=== PATIENT | male | born 1975 | race Caucasian/White ===

== ENCOUNTER 2017-08-09 05:45 | Day surgery (SDC) | payer BC ==
--- NOTE | 2017-08-03 15:11 | HP ---
HISTORY OF PRESENT ILLNESS: Mr. Buchanan is a 42-year-old male who we usually saw in 02/2017, who pres ented with right hip pain and low back pain. He had an MRI, which resulted and discussed and then he followed up with our office, presenting again with back and right hip pain as well as right groin in guinal and pudendal pain in 03/2017. He has some post-void urinary leakage at that time. In additio n, he had neck pain and bilateral hand numbness in the thumb, index and middle fingers, which is wors e at night and response to shaking of his wrist. EMG resulted with no radiculopathy, but bilateral c arpal tunnel syndrome and ulnar nerve was normal. He continues to have the hand pain at night and it is responding when he shakes his hands out. His s ymptoms are worse in the right greater than the left and are worse with physical activity. MRI of th e neck showed kyphosis at C3-C4, C4-C5, C5-C6. Disk disease at each, but worse at C4-C5 where there is moderate stenosis and foraminal disease. PAST MEDICAL HISTORY: Hypertension, varicocele in 2017. ALLERGIES: LEVAQUIN. REVIEW OF SYSTEMS: Ten-point review of systems completed and is otherwise negative unless stated in the above HPI. PAST SURGICAL HISTORY: Left knee cap chipped, spermatocele removed in 2013, right labrum shoulder te ar in 2015. HOSPITALIZATIONS: Hospitalizations for surgeries only. FAMILY HISTORY: Noncontributory. The patient is adopted. SOCIAL HISTORY: The patient is a nonsmoker. He is single. He is a hunting branch operations manager. MEDICATIONS: He is takin. Nasacort Allergy 24HR. 2. Prilosec. PHYSICAL EXAMINATION: HEENT: Normocephalic, atraumatic. Hearing is intact. Moist mucous membranes. NECK: Trachea is midline. EYES: Pupils are equal and reactive to light. Extraocular muscles are intact. Sclerae is white, no nicteric. PSYCHIATRIC: Normal mood and affect. CARDIOVASCULAR: No cyanosis or clubbing noted. Intact pedal pulses bilaterally. MUSCULOSKELETAL: Lower extremity, 5/5 strength in bilateral iliopsoas, quadriceps, hamstrings, right tibialis anterior and extensor hallucis longus. No sensory deficits bilaterally. Nontender to palp ation midline lumbar spine. RESPIRATORY: The patient has bilateral symmetric chest rise. Appears to have no shortness of breath . NEUROLOGIC: Cranial nerves II through XII are grossly intact. Speech is fluent, answers my question s appropriately. He has normal gait and station. He has numbness and no dermatomal pattern in the r ight and left hand. The pain is worse in the right hand. ASSESSMENT: 1. Right hip pain. 2. Carpal tunnel syndrome, bilateral upper wrist. 3. Kyphosis of the cervical region. PLAN: Dr. Alvarado talked to him about conservative therapy including weight loss, injections, phys ical therapy, and traction. We discussed a right carpal tunnel release. Informed consent was given. We discussed the risks, benefits, and possible complications of surgery. The patient is willing to proceed with the right carpal tunnel release.
[2017-08-06 11:29] VITALS: BMI 31.4
[2017-08-09] MEDS ORDERED: Midazolam HCl 2 mg/2 ml Vial ONE (06:08)
[2017-08-09] MEDS ORDERED: Fentanyl 100 MCG/2 ML VIAL ONE (06:08)
[2017-08-09] MEDS ORDERED: CEFAZOLIN/Water 2 GM/20 ML SYRINGE ONE (06:28)
[2017-08-09 06:31] LABS: #Basophils 0.1 thou/uL (0.0-0.2); #Eosinphils 0.2 thou/uL (0.0-0.7); #Lymphocytes 1.8 thou/uL (1.20-3.40); #Monocytes 0.6 thou/uL (0.11-0.59); #Neutrophils 5.4 thou/uL (1.40-6.50); %Basophils 1.3 % (0.0-1.0); %Eosinophils 2.3 % (0.0-10.0); %Lymphocytes 22.3 % (21.0-51.0); %Monocytes 7.2 % (0.0-10.0); %Neutrophils 66.9 % (42.0-75.0); Hemoglobin 16.5 g/dL (14.0-18.0); Mean Corpuscular HGB CONC 35.3 g/dL (32.0-36.0); Mean Corpuscular Hemoglobin 32.1 pg (27.0-31.0); Mean Corpuscular Volume 90.9 fl (80.0-94.0); Mean Platelet Volume 7.8 fL (7.4-10.4); Platelet Count 203 thou/uL (130-400); RBC Distribution Width 11.1 % (11.5-14.5); Red Blood Cell (RBC) Count 5.15 mill/uL (4.70-6.10); White Blood Cell (WBC) Count 8.1 thou/uL (4.8-10.8)
[2017-08-09 06:37] LABS: PTT 34.9 SEC (22.9-36.1); Prothrombin Time 13.4 SEC (12.0-14.7)
[2017-08-09] MEDS ORDERED: Propofol 500 MG/50 ML VIAL ONE (06:48)
[2017-08-09] MEDS ORDERED: Bupivacaine PF 0.5% 30 ML VIAL ONE (06:52)
[2017-08-09] MEDS ORDERED: Sodium Chloride 0.9% 10 ML ONE (07:26)
[2017-08-09] MEDS ORDERED: Bacitracin Zinc Ointment 30 gm TUBE ONE (07:26)
--- NOTE | 2017-08-09 08:21 | OP ---
DATE OF PROCEDURE: 08/09/2017 SURGEON: Tara Alvarado M.D. MONUMENT CARVER: Stephen Rubalcava PA-C. PREOPERATIVE INDICATION: Treat pain, prevent neurological deterioration. PREOPERATIVE DIAGNOSIS: Right carpal tunnel syndrome. POSTOPERATIVE DIAGNOSIS: Right carpal tunnel syndrome. PROCEDURE PERFORMED: Right carpal tunnel release (median neurorrhaphy at the wrist). PREOPERATIVE MEDICATION: Ancef 2 grams IV. DRAIN NUMBER: Zero. DRAIN TYPE: None. PROCEDURE IN DETAIL: The patient was brought to the operating room. IV sedation was administered. The skin was cleansed with an alcohol swab and local anesthetic was infused under a planned incision. We marked our incision from the distal palmar crease into the palm in line with the web space betwe en the ring and middle finger. The entire arm was sterilely prepped and draped. We opened our plann ed incision with a 15 blade knife and placed a self-retaining retractor. Hemostasis was obtained wit h gentle bipolar cautery. Using a fresh 15 blade knife, we sectioned the transverse carpal ligament and we entered the carpal tunnel. A [place] 4 dissector was used to protect the nerve as we section ed the transverse carpal ligament into the palm. We proceeded until we encountered the palmar fat pa d. We then turned our attention to the proximal end. Here, a [place] was placed under the skin. We placed one blade of curved scissors in the carpal tunnel, 1 blade above. We sectioned the transve rse carpal ligament into the forearm until there was no further compression of median nerve. We irri gated copiously with bacitracin irrigation. The skin was closed with vertical mattress sutures and a sterile dressing was applied. This was clean case and no contamination.
[2017-08-09] MEDS ORDERED: Propofol 200 MG/20 ML VIAL ONE (12:23)
[2017-08-09] MEDS ORDERED: CEFAZOLIN 1 GM VIAL ONE (12:23)
[2017-08-09] MEDS ORDERED: Sterile Water 10 ML VIAL ONE (12:23)
[2017-08-09] MEDS ORDERED: Ondansetron HCl/PF 4 MG/2 ML Vial ONE (12:23)
[2017-08-09] MEDS ORDERED: Lidocaine 1% PF 5 ML VIAL ONE (12:23)
== END 2017-08-09 09:07 | disposition home or self-care (01) ==
LOC: SDC 05:45
PROVIDERS: ATTEND Neurological Surgery
PROC: 01N50ZZ Release Median Nerve, Open Approach (ICD-10-PCS; principal; 2017-08-09)
DX: G56.01 Carpal tunnel syndrome, right upper limb (principal); I10 Essential (primary) hypertension; Z79.51 Long term (current) use of inhaled steroids; Z79.899 Other long term (current) drug therapy; Z88.1 Allergy status to other antibiotic agents; Z98.890 Other specified postprocedural states; Z98.818 Other dental procedure status
CPT/HCPCS: 85025; 85610; 85730; 93005; 93010; A4216; J0690; J2001; J2250; J2405; J2704; J3010; J3490; S0020

== ENCOUNTER 2019-05-16 05:53 | Day surgery (SDC) | payer BC ==
[2019-05-15 11:31] VITALS: BMI 33.5
--- NOTE | 2019-05-15 11:53 | HP ---
HISTORY OF PRESENT ILLNESS: Mr. Buchanan is back in our office. He has had a procedure on his left shoulder about five months ago and finished with his physical therapy from that. He got good relief from his carpal tunnel release but now notices neck pain, neck stiffness, some imbalance along with some finger incoordination. In addition, there is radicular pain under the scapula over the deltoid to the right upper arm, sometimes on the left past the elbow. REVIEW OF SYSTEMS: A 10-point review of systems is completed, negative other than stated in the above HPI. PAST MEDICAL HISTORY: Hypertension, varicocele in 17. ALLERGIES: LEVAQUIN. PAST SURGICAL HISTORY: Left knee cap chipped, left spermatocele removed, right labral shoulder tear. MEDICATIONS: 1. Prilosec. 2. Nasacort. PHYSICAL EXAMINATION: CONSTITUTIONAL: The patient is awake, alert, oriented. No visible distress. RESPIRATIONS: Normal work of breathing on room air. NEUROLOGIC: Gait and station are normal. Motor exam, right greater than left. Deltoid weakness, some wrist extension and finger extension on the left. Sensory exam, there is no dermatomal sensory loss in C5, C6, C7, C8 or T1. Reflex exam brisk. IMAGING: MRI shows disk at C4-C5 on the right and C5-C6 left, moderate. ASSESSMENT AND PLAN: Cervical disk disorder with radiculopathy and myelopathy. Dr. Alvarado has offered surgery at C4-C5 and C5-C6. The patient states that he understands the risks and is willing to proceed with surgery. Job ID: [id number]
[2019-05-16] MEDS ORDERED: Thrombin 5000 UNITS/5 ML VIAL ONE (06:10)
[2019-05-16] MEDS ORDERED: Sodium Chloride 0.9% 10 ML ONE (06:10)
[2019-05-16] MEDS ORDERED: Fentanyl 250 MCG/5 ML VIAL ONE (06:17)
[2019-05-16 06:44] LABS: #Basophils 0.1 thou/uL (0.0-0.2); #Eosinphils 0.2 thou/uL (0.0-0.7); #Lymphocytes 1.8 thou/uL (1.20-3.40); #Monocytes 0.7 thou/uL (0.11-0.59); #Neutrophils 5.3 thou/uL (1.40-6.50); %Basophils 1.3 % (0.0-1.0); %Eosinophils 2.4 % (0.0-10.0); %Lymphocytes 22.1 % (21.0-51.0); %Monocytes 8.4 % (0.0-10.0); %Neutrophils 65.9 % (42.0-75.0); Hemoglobin 15.8 g/dL (14.0-18.0); Mean Corpuscular Hemoglobin 31.3 pg (27.0-31.0); Mean Corpuscular Volume 89.4 fL (78.0-98.0); Mean Platelet Volume 7.8 fL (7.4-10.4); Platelet Count 225 thou/uL (130-400); RBC Distribution Width 11.2 % (11.5-14.5); Red Blood Cell (RBC) Count 5.06 mill/uL (4.70-6.10)
[2019-05-16] MEDS ORDERED: Midazolam HCl 2 mg/2 ml Vial ONE (06:45)
[2019-05-16 06:58] LABS: Prothrombin Time 13.3 SEC (12.0-14.7)
[2019-05-16] MEDS ORDERED: Fentanyl 100 MCG/2 ML VIAL ONE ×2 (09:55→10:52)
[2019-05-16] MEDS ORDERED: Glycopyrrolate 0.2 MG/ML 5 ML SYRINGE ONE (10:34)
[2019-05-16] MEDS ORDERED: PHENYLEPHRINE-NS 100 MCG/ML 10 ML SYRINGE ONE (10:34)
[2019-05-16] MEDS ORDERED: PROPOFOL 200 MG/20 ML VIAL ONE (10:34)
[2019-05-16] MEDS ORDERED: ePHEDrine/0.9% NaCl/PF SYRINGE 50 mg/10 ml ONE (10:34)
[2019-05-16] MEDS ORDERED: Dexamethasone 20 MG/5 ML VIAL ONE (10:34)
[2019-05-16] MEDS ORDERED: Ondansetron PF 4 MG/2 ML Vial ONE (10:34)
[2019-05-16] MEDS ORDERED: Lidocaine 1% PF 5 ML VIAL ONE (10:34)
[2019-05-16] MEDS ORDERED: Rocuronium Bromide 10 MG/ML (10ML VIAL) ONE (10:34)
[2019-05-16] MEDS ORDERED: HYDROcodone/Acetaminophen 5/325 mg Tablet ONE (13:08)
--- NOTE | 2019-05-16 16:24 | OP ---
DATE OF PROCEDURE: 05/16/2019 CLEANING ATTENDANT: Arlene Ramirez PA-C PREOPERATIVE INDICATION: Prevent neurological deterioration. PREOPERATIVE DIAGNOSIS: Cervical intervertebral disk disease with myelopathy and radiculopathy, C4-C5 and C5-C6. POSTOPERATIVE DIAGNOSIS: Cervical intervertebral disk disease with myelopathy and radiculopathy, C4-C5 and C5-C6. PROCEDURES PERFORMED: Anterior cervical diskectomy, intervertebral arthrodesis, placement of intervertebral biomechanical device, and anterior cervical plating, C4-C5 and C5-C6, local morselized autograft, morselized allograft, operating microscope. PREOPERATIVE MEDICATIONS: Ancef 2 g IV. DRAIN NUMBER: Zero. DRAIN TYPE: None. DESCRIPTION OF PROCEDURE: The patient was brought to the operating room. General endotracheal anesthesia was induced. The patient was carefully positioned on the operating table with his head supported by a donut-shaped headrest. A lateral fluoro radiograph was used to plan our incision. The right side of the neck was sterilely prepped and draped. We opened our incision with a 10 blade knife and we controlled bleeding with bipolar cautery. We dissected sharply to the platysma and we cut this muscle in line with our incision. We continued our dissection medial to the sternocleidomastoid, lateral to the trachea and esophagus until we arrived at the prevertebral space. We took a lateral fluoro radiograph to confirm the levels upon which we were operating. We then elevated the longus colli muscles off the anterior surface of C4, C5, and C6 and placed a self-retaining retractor beneath them. We placed distraction pins at C4 and C6 and distracted across the intervening interspaces. We incised the interspaces with a 15 blade knife and removed disk contents with curettes and rongeurs. As we approached the posterior longitudinal ligament, we brought the operating microscope into the field. Under microscopic magnification using microsurgical techniques, we removed the remainder of the intervertebral disk. We accessed the ventral epidural space with a micro curette and removed posterior longitudinal ligament and posterior osteophytes across the entire interspace at C4-C5 and at C5-C6 until the dura was decompressed from one nerve root all the way to the other at both of the two interspaces. We then turned our attention to arthrodesis. Using curettes, we prepared the endplates for grafting. We used a bone rasp to measure the height of the interspace to 7 mm at both C4-C5 and at C5-C6. Two separate PEEK intervertebral grafts were brought into the field. Osteophytes removed during our decompression were cleaned of soft tissue attachments, morcellized and added into demineralized bone matrix to form part of fusion substrate. The substrate was packed into the interbody devices and those were advanced into their interspaces under radiographic guidance to the appropriate depth. We then took the operative microscope out of the field and removed distraction pins. A 31-mm anterior cervical plate was brought into the field. We drilled drone pilot holes through the plate and then affixed the plate to C4, C5, and C6 using variable angle screws at the two top vertebrae and fixed angle screws at C6. We engaged the locking mechanism over each of the 6 screws. AP and lateral fluoro radiographs confirmed adequate positioning of our instrumentation. We irrigated copiously with bacitracin irrigation. We closed the wound in anatomical layers and we applied a sterile dressing. This was a clean case, no contamination. Job ID: [id number]
== END 2019-05-16 14:32 | disposition home or self-care (01) ==
LOC: SDC 05:53
PROVIDERS: ATTEND Neurological Surgery
DX: M50.021 Cervical disc disorder at C4-C5 level with myelopathy (principal); M50.121 Cervical disc disorder at C4-C5 level with radiculopathy; I10 Essential (primary) hypertension; Z79.899 Other long term (current) drug therapy; Z88.1 Allergy status to other antibiotic agents; Z88.8 Allergy status to other drugs, medicaments and biological substances; Z98.890 Other specified postprocedural states
CPT/HCPCS: 36415; 76000; 85025; 85610; 85730; C1713; C1776; J0690; J1100; J2001; J2250; J2405; J2704; J3010; J3490; L0174